=== PATIENT | female | born 1995 | race Caucasian/White ===

== ENCOUNTER 2021-06-28 09:49 | Inpatient (IN) | payer BC, MEDICAID ==
[2021-06-28 11:49] LABS: BLOOD UREA NITROGEN,BUN 10 mg/dL (7.0-18.0); CARBON DIOXIDE,CO2 21.4 mmol/L (21.0-32.0); CHLORIDE,CL 102 mmol/L (98-107); GLUCOSE RANDOM 96 mg/dL (74-106); POTASSIUM,K 3.8 mmol/L (3.5-5.1); SODIUM,NA 135 mmol/L (136-145)
[2021-06-28] MEDS ORDERED: Terbutaline 1 MG/ML SDV SUBCUT PRN (13:03)
[2021-06-28] MEDS ORDERED: Lidocaine 1% 50 ML MDV INJECT PRN (13:03)
[2021-06-28] MEDS ORDERED: Sodium Chloride 0.9% 20 ML SDV IV PRN (13:03)
[2021-06-28] MEDS ORDERED: Sodium Chloride 0.9% 10 ML Syringe FLUSH PRN (13:03)
[2021-06-28] MEDS ORDERED: Sodium Chloride 0.9% 2.5 ML Syringe FLUSH PRN (13:03)
[2021-06-28] MEDS ORDERED: Misoprostol 200 MCG Tab PO PRN (13:03)
[2021-06-28] MEDS ORDERED: Water For Irrigation,Sterile 1,000 ML Container IRR PRN (13:03)
[2021-06-28] MEDS ORDERED: Tranexamic Acid 1,000 MG in Sodium Chloride 0.9% 100 ML IV PRN (13:03)
[2021-06-28] MEDS ORDERED: Carboprost Tromethamine 250 MCG/1 ML Amp IM PRN (13:03)
[2021-06-28] MEDS ORDERED: Ondansetron 4 MG/2 ML SDV IVPUSH PRN (13:03)
[2021-06-28] MEDS ORDERED: Methylergonovine 0.2 MG/1 ML Amp IM PRN (13:03)
[2021-06-28] MEDS ORDERED: Butorphanol 1 MG/ML SDV IVPUSH PRN (13:03)
[2021-06-28] MEDS ORDERED: Oxytocin/0.9 % Sodium Chloride 30 UNIT/500 ML BAG IV SCH (13:15)
[2021-06-28] MEDS: Lactated Ringers 1,000 ML IV SCH ×2 (14:28→20:37)
[2021-06-28] MEDS: Oxytocin/0.9 % Sodium Chloride 30 UNIT/500 ML BAG IV SCH (14:30)
[2021-06-28] MEDS ORDERED: Labetalol 100 MG/20 ML MDV IVPUSH PRN (16:55)
[2021-06-29] MEDS: Lactated Ringers 1,000 ML IV SCH ×3 (02:33→13:38)
[2021-06-29] MEDS ORDERED: Misoprostol 50 MCG (1/2 of 100 MCG) Tab VAG PRN (03:45)
[2021-06-29] MEDS ORDERED: Misoprostol 25 MCG (1/4 of 100 MCG) Tab PO SCH (05:00)
[2021-06-29] MEDS ORDERED: Misoprostol 25 MCG (1/4 of 100 MCG) Tab VAG SCH (05:15)
[2021-06-29] MEDS: Oxytocin/0.9 % Sodium Chloride 30 UNIT/500 ML BAG IV SCH (09:53)
[2021-06-29] MEDS ORDERED: Ropivacaine 100 ML ONE (11:54)
[2021-06-29] MEDS ORDERED: Ropivacaine 200 MG in Premix Bag 1 BAG EPIDUR SCH (12:19)
[2021-06-29] MEDS ORDERED: ePHEDrine 50 MG/ML SDV IVPUSH PRN (12:36)
[2021-06-29] MEDS ORDERED: Bisacodyl 10 MG Supp RECTAL PRN (18:43)
[2021-06-29] MEDS ORDERED: Docusate Sodium 100 MG Cap PO PRN (18:43)
[2021-06-29] MEDS ORDERED: Benzocaine/Menthol 20%-0.5% Spray 78 GM Cannister TOP PRN (18:43)
[2021-06-29] MEDS ORDERED: Tranexamic Acid 1,000 MG in Sodium Chloride 0.9% 100 ML IV PRN (18:43)
[2021-06-29] MEDS ORDERED: Acetaminophen 500 MG Tab PO PRN (18:43)
[2021-06-29] MEDS ORDERED: Ibuprofen 400 MG Tab PO PRN (18:43)
[2021-06-29] MEDS ORDERED: Lanolin 100% Cream 7 GM Tube TOP PRN (18:43)
[2021-06-29] MEDS ORDERED: Witch Hazel Medicated Pads 40/Jar TOP PRN (18:43)
[2021-06-29] MEDS: Acetaminophen 500 MG Tab PO PRN (20:07)
[2021-06-30] MEDS: Acetaminophen 500 MG Tab PO PRN ×2 (00:25→20:33)
[2021-06-30] MEDS: Ibuprofen 800 MG Tab PO PRN ×2 (07:28→14:15)
[2021-06-30] MEDS ORDERED: Midazolam 1 MG/ML 2 ML SDV ONE (21:16)
[2021-07-01] MEDS: Acetaminophen 500 MG Tab PO PRN (04:32)
== END 2021-07-01 12:20 | disposition home or self-care (01) | DRG 560 ==
LOC: MW.OBCHECK 09:49 → MW.OB 09:50 → MW.OBCHECK 13:03 → MW.OB 13:04 → OBSVTOIN 06-29 18:20 → MW.OB 06-30 02:26
PROVIDERS: ADMIT Obstetrics & Gynecology; ATTEND Obstetrics & Gynecology
PROC: 10E0XZZ Delivery of Products of Conception, External Approach (ICD-10-PCS; principal; 2021-06-29)
PROC: 10907ZC Drainage of Amniotic Fluid, Therapeutic from Products of Conception, Via Natural or Artificial Opening (ICD-10-PCS; 2021-06-29)
PROC: 3E0P7VZ Introduction of Hormone into Female Reproductive, Via Natural or Artificial Opening (ICD-10-PCS; 2021-06-29)
PROC: 3E033VJ Introduction of Other Hormone into Peripheral Vein, Percutaneous Approach (ICD-10-PCS; 2021-06-29)
PROC: 0HQ9XZZ Repair Perineum Skin, External Approach (ICD-10-PCS; 2021-06-29)
PROC: 3E0R3BZ Introduction of Anesthetic Agent into Spinal Canal, Percutaneous Approach (ICD-10-PCS; 2021-06-29)
PROC: 00HU33Z Insertion of Infusion Device into Spinal Canal, Percutaneous Approach (ICD-10-PCS; 2021-06-29)
DX: O13.4 Gestational [pregnancy-induced] hypertension without significant proteinuria, complicating childbirth (principal); Z3A.37 37 weeks gestation of pregnancy; Z37.0 Single live birth; O70.0 First degree perineal laceration during delivery; O99.214 Obesity complicating childbirth; E66.9 Obesity, unspecified; Z20.822 Contact with and (suspected) exposure to COVID-19
CPT/HCPCS: 36415; 51702; 59025; 59409; 80053; 81003; 82803; 84550; 85014; 85018; 85025; 86592; 86850; 86900; 86901; A9270-GY; J0595; J2001; J2250; J2405; J2590; J2795; J7120; U0002

== ENCOUNTER 2021-08-28 12:46 | Emergency (ER) | payer BC, MEDICAID ==
[2021-08-28] MEDS ORDERED: Ondansetron 4 MG/2 ML SDV IVPUSH ONE (13:50)
[2021-08-28] MEDS ORDERED: Morphine 4 MG/ML VIAL IVPUSH ONE (13:50)
[2021-08-28] MEDS ORDERED: Sodium Chloride 0.9% 1,000 ML IV ONE (13:50)
[2021-08-28 14:41] LABS: CARBON DIOXIDE,CO2 24.7 mmol/L (21.0-32.0); POTASSIUM,K 3.9 mmol/L (3.5-5.1)
[2021-08-28] MEDS ORDERED: Iopamidol 755 MG/ML 500 ML Multipack Bottle IVPUSH ONE (18:28)
== END 2021-08-28 16:25 | disposition home or self-care (01) ==
LOC: MW.ED 12:46
DX: R10.9 Unspecified abdominal pain (principal); Z20.822 Contact with and (suspected) exposure to COVID-19
CPT/HCPCS: 36415; 74177; 80053; 81001; 83605; 83690; 83735; 85025; 87635; 96361; 96374; 96375; 99284; J2270; J2405; J7030; Q9967; U0002

== ENCOUNTER 2022-02-07 22:50 | Emergency (ER) | payer BC, MEDICAID ==
[2022-02-07] MEDS ORDERED: Sodium Chloride 0.9% 1,000 ML IV ONE (23:55)
[2022-02-07] MEDS ORDERED: Ketorolac 30 MG/ML SDV IVPUSH ONE (23:56)
[2022-02-08] MEDS ORDERED: Ondansetron 4 MG/2 ML SDV IVPUSH ONE (00:09)
[2022-02-08 00:28] LABS: CORONAVIRUS COVID-19 NAA NEGATIVE (NEGATIVE); INFLUENZA A NAA NEGATIVE (NEGATIVE); INFLUENZA B NAA NEGATIVE (NEGATIVE)
[2022-02-08 00:37] LABS: CARBON DIOXIDE,CO2 28.3 mmol/L (21.0-32.0); POTASSIUM,K 3.6 mmol/L (3.5-5.1)
[2022-02-08] MEDS ORDERED: Diazepam 5 MG Tab PO ONE (01:16)
== END 2022-02-08 01:33 | disposition home or self-care (01) ==
LOC: MW.ED 22:50
DX: M62.838 Other muscle spasm (principal); Z20.822 Contact with and (suspected) exposure to COVID-19
CPT/HCPCS: 0240U; 36415; 80053; 84703; 85025; 86140; 96361; 96374; 96375; 99284; A9270; J1885; J2405; J3360; J7030

== ENCOUNTER 2022-03-13 21:17 | Emergency (ER) | payer BC, MEDICAID ==
[2022-03-13] MEDS ORDERED: Sodium Chloride 0.9% 2.5 ML Syringe FLUSH PRN (21:36)
[2022-03-13] MEDS ORDERED: Sodium Chloride 0.9% 10 ML Syringe FLUSH PRN (21:36)
[2022-03-13] MEDS ORDERED: Ketorolac 30 MG/ML SDV IVPUSH ONE (22:04)
[2022-03-13 22:19] LABS: CARBON DIOXIDE,CO2 22.3 mmol/L (21.0-32.0)
== END 2022-03-13 23:32 | disposition home or self-care (01) ==
LOC: MW.ED 21:17
DX: R10.30 Lower abdominal pain, unspecified (principal); Z79.899 Other long term (current) drug therapy; Z90.49 Acquired absence of other specified parts of digestive tract
CPT/HCPCS: 36415; 74176; 80053; 81001; 83690; 84703; 85025; 96374; 99284; J1885; J3490

== ENCOUNTER 2022-08-28 14:22 | Emergency (ER) | payer BC, MEDICAID ==
[2022-08-28] MEDS ORDERED: Sodium Chloride 0.9% 10 ML Syringe FLUSH PRN (15:00)
[2022-08-28] MEDS ORDERED: Sodium Chloride 0.9% 2.5 ML Syringe FLUSH PRN (15:00)
[2022-08-28] MEDS ORDERED: Sodium Chloride 0.9% 1,000 ML IV STA ×2 (15:00→15:02)
[2022-08-28] MEDS ORDERED: Ondansetron 4 MG/2 ML SDV IVPUSH STA (15:02)
[2022-08-28] MEDS ORDERED: Ketorolac 30 MG/ML SDV IVPUSH STA (15:02)
[2022-08-28 15:20] LABS: APPEARANCE,URINE CLOUDY; BILIRUBIN,URINE NEGATIVE (NEGATIVE); COLOR,URINE YELLOW; GLUCOSE,URINE NEGATIVE (NEGATIVE); KETONES,URINE NEGATIVE (NEGATIVE); LEUKOCYTE ESTERASE,URINE TRACE (NEGATIVE); NITRITE,URINE NEGATIVE (NEGATIVE); OCCULT BLOOD,URINE SMALL (NEGATIVE); PROTEIN,URINE NEGATIVE (NEGATIVE); UROBILINOGEN,URINE 0.2 EU/dL (<2.0)
[2022-08-28 15:21] LABS: BASOPHILS PERCENT AUTO 0.2 % (0.0-1.5); EOSINOPHILS PERCENT AUTO 0.5 % (0.0-7.0); HEMATOCRIT 39.8 % (36.0-46.0); HEMOGLOBIN 13.5 g/dL (12.0-16.0); LYMPHOCYTES ABSOLUTE AUTO 3.3 K/uL (0.6-2.4); LYMPHOCYTES PERCENT AUTO 37.4 % (16.0-40.0); MEAN CORPUSCULAR HEMOGLOBIN 29.1 pg (27.0-32.0); MEAN CORPUSCULAR HGB CONC 33.9 g/dL (31.0-37.0); MEAN CORPUSCULAR VOLUME 85.8 fL (80.0-98.0); MONOCYTES ABSOLUTE AUTO 0.5 K/uL (0.0-0.8); MONOCYTES PERCENT AUTO 5.1 % (0.0-15.0); NEUTROPHILS PERCENT AUTO 56.8 % (48.0-80.0); NRBC ABSOLUTE 0 K/uL; PLATELET COUNT,PLT 373 K/uL (150-400); RED BLOOD CELL COUNT 4.64 M/uL (4.30-5.90); WHITE BLOOD CELL COUNT,WBC 8.84 K/uL (4.0-11.0)
[2022-08-28 15:30] LABS: BACTERIA,URINE MODERATE (NEGATIVE); EPITHELIAL CELLS,URINE MANY (NONE-FEW); HYALINE CASTS,URINE FEW (0-2/LPF); RBC,URINE 0-5 (0-2/HPF); SQUAMOUS EPITHELIAL CELLS,UR MANY
[2022-08-28 15:41] LABS: A/G RATIO 0.9 (0.9-1.6); ALBUMIN 3.5 g/dL (3.4-5.0); BILIRUBIN TOTAL 0.4 mg/dL (0.2-1.0); CALCIUM 8.8 mg/dL (8.5-10.1); CARBON DIOXIDE,CO2 22.1 mmol/L (21.0-32.0); CREATININE 0.7 mg/dL (0.6-1.0); EST CRCL DRUG DOSING (CG) 129.51 mL/min; PROTEIN TOTAL,TP 7.6 g/dL (6.4-8.2)
[2022-08-28] MEDS ORDERED: Cephalexin 500 MG Cap PO STA (17:13)
== END 2022-08-28 17:33 | disposition home or self-care (01) ==
LOC: MW.ED 14:22
DX: N30.01 Acute cystitis with hematuria (principal); Z90.49 Acquired absence of other specified parts of digestive tract
CPT/HCPCS: 36415; 74176; 80053; 81001; 83690; 84703; 85025; 87086; 96361; 96374; 96375; 99284; A9270; J1885; J2405; J3490; J7030; 87077

== ENCOUNTER 2023-07-26 10:52 | Emergency (ER) | payer BC, OTHER ==
[2023-07-26] MEDS: Sodium Chloride 0.9% 2.5 ML Syringe FLUSH PRN (11:33)
[2023-07-26] MEDS: Sodium Chloride 0.9% 10 ML Syringe FLUSH PRN (11:34)
[2023-07-26 11:37] LABS: BASOPHILS ABSOLUTE AUTO 0.02 K/uL (0.00-0.20); BASOPHILS PERCENT AUTO 0.2 % (0.0-1.0); EOSINOPHILS ABSOLUTE AUTO 0.05 K/uL (0.00-0.45); EOSINOPHILS PERCENT AUTO 0.4 % (0.0-6.0); HEMATOCRIT 38.3 % (37.0-47.0); HEMOGLOBIN 13.1 g/dL (12.0-16.0); IMMATURE GRAN ABSOLUTE AUTO 0.03 K/uL (0.00-0.05); IMMATURE GRAN PERCENT AUTO 0.3 % (0.0-0.4); LYMPHOCYTES ABSOLUTE AUTO 1.98 K/uL (1.00-4.80); LYMPHOCYTES PERCENT AUTO 17.3 % (24.0-44.0); MEAN CORPUSCULAR HEMOGLOBIN 30.3 pg (28.0-32.0); MEAN CORPUSCULAR HGB CONC 34.2 g/dL (32.0-36.0); MEAN CORPUSCULAR VOLUME 88.5 fL (83.0-99.0); MONOCYTES ABSOLUTE AUTO 0.59 K/uL (0.00-0.80); MONOCYTES PERCENT AUTO 5.2 % (0.0-8.0); NEUTROPHILS ABSOLUTE AUTO 8.78 K/uL (1.80-7.70); NEUTROPHILS PERCENT AUTO 76.6 % (41.0-71.0); PLATELET COUNT,PLT 371 K/uL (150-400); RED BLOOD CELL COUNT 4.33 M/uL (4.10-5.30); WHITE BLOOD CELL COUNT,WBC 11.45 K/uL (3.9-11.3)
[2023-07-26 12:07] LABS: BLOOD UREA NITROGEN,BUN 13 mg/dL (7.0-18.0); CALCIUM 8.8 mg/dL (8.5-10.1); CARBON DIOXIDE,CO2 25.4 mmol/L (21.0-32.0); CHLORIDE,CL 104 mmol/L (98-107); CREATININE 0.8 mg/dL (0.6-1.0); GLUCOSE RANDOM 97 mg/dL (74-106); POTASSIUM,K 4.3 mmol/L (3.5-5.1); SODIUM,NA 138 mmol/L (136-145)
[2023-07-26 12:15] LABS: ESTIMATED GFR 105 mL/min (>60)
[2023-07-26] MEDS ORDERED: Naloxone 0.4 MG/ML SDV IVPUSH PRN ×2 (12:16→14:37)
[2023-07-26] MEDS: Morphine 2 MG/ML SYRINGE IVPUSH PRN (12:28)
[2023-07-26] MEDS: Iopamidol 755 MG/ML 500 ML Multipack Bottle IVPUSH STA (13:11)
[2023-07-26] MEDS ORDERED: Dexamethasone 4 MG/ML SDV IVPUSH ONE (14:03)
[2023-07-26] MEDS: Clindamycin Phosphate in D5W 900 MG in Premix Bag 1 BAG IV ONE (14:19)
[2023-07-26] MEDS: HYDROmorphone 1 MG/ML Syringe IVPUSH ONE (14:58)
[2023-07-26] MEDS: Ondansetron 4 MG/2 ML SDV IVPUSH ONE (15:08)
[2023-07-26] MEDS: Sodium Chloride 0.9% 1,000 ML IV ONE (15:42)
[2023-07-27] MEDS: methylPREDNISolone Sodium Succinate 125 MG/2 ML SDV IVPUSH ONE (09:42)
== END 2023-07-26 15:36 ==
LOC: MW.ED 10:52
DX: J36 Peritonsillar abscess (principal); Z79.899 Other long term (current) drug therapy; Z75.8 Other problems related to medical facilities and other health care
CPT/HCPCS: 36415; 70491; 80048; 81025; 85025; 87651; 96365; 96375; 96376; 99284; J0736; J1100; J1170; J2270; J2405; J3490; J7060; Q9967; 99285